=== PATIENT | male | born 1955 | race Caucasian/White ===

== ENCOUNTER 2016-09-21 10:16 | Emergency (ER) | payer SELFPAY ==
[2016-09-21 10:48] LABS: BASO # 0.1 10_X3_uL (0.0-0.1); BASO % 0.5 % (0.2-1.2); EOS % 0.1 % (0.8-7.0); GRAN # 19.2 10_X3_uL (1.8-5.4); GRAN % 72.7 % (34.0-67.9); HEMATOCRIT 45.5 % (40-51); HEMOGLOBIN 15.1 g/dL (13.7-17.5); MEAN CORPUSCULAR HGB CONC 33.2 g/dL (32.0-36.0); MEAN CORPUSCULAR VOLUME 90.5 fL (79-92); MEAN PLATELET VOLUME 9.8 fl (7.5-11.5); MONO # 3.1 10_X3_uL (0.3-0.8); MONO % 11.7 % (5.3-12.2); PLATELET COUNT 465 x10_3/uL (163-337); RED BLOOD COUNT 5.03 x10_6/uL (4.6-6.1); RED CELL DISTRIBUTION WIDTH 14.1 % (11.6-14.4)
[2016-09-21 10:57] LABS: WHITE BLOOD COUNT 26.5 x10_3/uL (4.2-9.1)
[2016-09-21 10:59] LABS: ARTERIAL BLD GAS O2 SATURATION 92.6 % (94-98); ARTERIAL BLOOD GAS BASE EXCESS 3.6 mmol/L (-2.0-3.0); ARTERIAL BLOOD GAS HCO3 28.4 mmol/L (22-26); ARTERIAL BLOOD GAS pH 7.42 (7.35-7.45)
[2016-09-21 11:04] LABS: ALBUMIN 3.7 gm/dL (3.4-5.0); ALKALINE PHOSPHATASE 110 U/L (50-136); ALT/SGPT 25 U/L (7.53-40.17); AST/SGOT 22 U/L (6.66-35.34); BILIRUBIN,TOTAL 1.07 mg/dL (0.0-1.0); BLOOD UREA NITROGEN 13 mg/dL (7-18); CALCIUM 9.2 mg/dL (8.7-10.7); CARBON DIOXIDE 26 mmol/L (21-32); CREATININE 1.1 mg/dL (0.6-1.3); GLUCOSE,RANDOM 180 mg/dL (70-99); POTASSIUM 4.3 mmol/L (3.5-5.1); SODIUM 137 mmol/L (136-145); TOTAL PROTEIN 7.3 gm/dL (6.4-8.2)
[2016-09-21 11:27] LABS: URINE BILIRUBIN NEGATIVE (NEGATIVE); URINE BLOOD 1+ (NEGATIVE); URINE GLUCOSE (UA) 50 mg/dL (NORMAL); URINE KETONE NEGATIVE (NEGATIVE); URINE LEUKOCYTE ESTERASE TRACE (NEGATIVE); URINE NITRATE NEGATIVE (NEGATIVE); URINE PROTEIN 2+ (NEGATIVE)
[2016-09-21 11:36] LABS: URINE BACTERIA TRACE (NONE SEEN); URINE RBC 0-5 /[HPF] (0-2); URINE SQUAMOUS EPITHELIAL CELL 0-10 /[HPF] (NONE SEEN); URINE YEAST FEW (NONE SEEN)
== END 2016-09-21 14:20 | disposition short-term general hospital (02) ==
LOC: ER 10:16
PROVIDERS: General Practice
DX: N30.90 Cystitis, unspecified without hematuria (principal); I51.7 Cardiomegaly; J18.9 Pneumonia, unspecified organism; I73.9 Peripheral vascular disease, unspecified; R53.1 Weakness; R73.9 Hyperglycemia, unspecified; R60.0 Localized edema; R06.02 Shortness of breath; R00.0 Tachycardia, unspecified; E66.01 Morbid (severe) obesity due to excess calories; J60 Coalworker's pneumoconiosis; M19.90 Unspecified osteoarthritis, unspecified site; I50.9 Heart failure, unspecified; J44.9 Chronic obstructive pulmonary disease, unspecified; I25.10 Atherosclerotic heart disease of native coronary artery without angina pectoris; G47.30 Sleep apnea, unspecified; I10 Essential (primary) hypertension; M10.9 Gout, unspecified; Z95.5 Presence of coronary angioplasty implant and graft; G89.29 Other chronic pain; M54.9 Dorsalgia, unspecified; Z79.02 Long term (current) use of antithrombotics/antiplatelets; Z79.82 Long term (current) use of aspirin; Z79.899 Other long term (current) drug therapy
CPT/HCPCS: 36415; 36600; 51701; 71010; 80053; 81001; 82550; 82553; 82803; 83605; 83880; 85025; 87040; 87086; 93005; 96365; 96367; 96375; 99070; 99284; 99284-25; J7050